=== PATIENT | female | born 1975 | race Caucasian/White ===

== ENCOUNTER 2016-11-24 16:55 | Emergency (ER) | payer MEDICAID ==
[~2016-11-24] VITALS: Ht 160 cm; Wt 80.1 kg
[~2016-11-24 16:55] MED LIST: ALBU2.5V3 NEB; ALBU8.5H3 INH; ALBU8.5H5 INH; BECL8.7A INH; CARI350T PO; CYCL-319 PO; GUAI118L94 PO; HYDR-906 PO; IBUP-1542 PO; IBUP800T25 PO; IPRA3AMP IH; NITR-58 PO; PHEN-538 PO; PRED50TA PO
[2016-11-24 17:01] VITALS: Ht 160 cm; Wt 80.1 kg
[2016-11-24] MEDS ORDERED: MED4DP PO (17:59)
[2016-11-24] MEDS ORDERED: CEPH-443 PO (17:59)
--- NOTE | 2016-11-24 18:11 | ERD ---
ER Documentation Chief Complaint Date/Time DATE: 11/24/16 TIME: 18:03 Chief Complaint RASH LIKE AND SWELLING AROUND LEFT EYE X 2 DAYS HPI This patient is a 41-year-old female with no significant medical history presenting to the emergency department for left eye swelling and redness with a large pimple just lateral to the left eye. She also reports lymphadenopathy of the left anterior neck and to the left preauricular area. The patient also reports chills. She states her face feels hot. She denies any nausea, vomiting , diarrhea, urinary symptoms, or other symptoms at this time. ROS All systems reviewed and are negative except as per history of present illness. Medications Home Meds Active Scripts Methylprednisolone* (Medrol* DOSE PACK) 4 Mg/Dose-Pack Tab.ds.pk, 4 MG PO . DIRECTED, #1 PACKET Prov:RENNY CASTRO PA-C 11/24/16 Cephalexin* (Keflex*) 500 Mg Capsule, 500 MG PO TID for 7 Days, #21 CAP Prov:RENNY CASTRO PA-C 11/24/16 Nitrofurantoin Monohyd Macrocr* (Macrobid*) 100 Mg Capsr, 100 MG PO BID for 7 Days, CAP Prov:DANDRE REDDY NP 06/10/16 Phenazopyridine Hcl* (Pyridium*) 200 Mg Tab, 200 MG PO TID Y for URINARY PAIN, # 6 TAB Prov:DANDRE REDDY NP 06/10/16 Cyclobenzaprine Hcl* (Cyclobenzaprine Hcl*) 10 Mg Tablet, 10 MG PO TID, #15 TAB Prov:DANDRE REDDY NP 06/10/16 Ibuprofen* (Motrin*) 600 Mg Tab, 600 MG PO Q6H Y for PAIN AND OR ELEVATED TEMP, #30 TAB Prov:DANDRE REDDY NP 06/10/16 Hydrocodone/Acetaminophen (Marshall 5-325 Tablet) 1 Each Tablet, 1 TAB PO Q6H Y for PAIN, #20 TAB Prov:DANDRE REDDY NP 06/10/16 Carisoprodol* (Soma*) 350 Mg Tablet, 350 MG PO TID Y for MUSCLE SPASMS, #15 TAB Prov:DANDRE REDDY NP 01/14/16 Cyclobenzaprine Hcl* (Cyclobenzaprine Hcl*) 10 Mg Tablet, 10 MG PO TID, #15 TAB Prov:DANDRE REDDY NP 01/14/16 Ibuprofen* (Motrin*) 800 Mg Tab, 800 MG PO Q8 Y for PAIN AND OR ELEVATED TEMP, # 30 TAB Prov:ISABELL FERREIRA LEAD HANDLER 01/08/16 Beclomethasone Dip* (Qvar 40*) 7.3 Gm Inha, 2 PUFF INH BID, #1 INH Prov:DANDRE REDDY NP 08/21/15 Prednisone* (Prednisone*) 50 Mg Tablet, 50 MG PO DAILY for 5 Days, TAB Prov:DANDRE REDDY NP 08/21/15 Guaifenesin-Codeine Phosphate* (Guaifenesin* with Codeine Liq) 120 Ml Liquid, 5 ML PO Q4H for COUGH, #120 ML Prov:DANDRE REDDY NP 08/21/15 Ipratropium-Albuterol (Ipratropium-Albuterol) 0.5-3 Mg/3 Ml Ampul.neb, 3 ML IH Q6 Y for SHORTNESS OF BREATH, #30 EA Prov:DANDRE REDDY NP 08/21/15 Albuterol Sulfate* (Albuterol Sulfate* HFA) 8.5 Gm Hfa.aer.ad, 2 PUFF INH Q4 Y for SHORTNESS OF BREATH, #1 EA Prov:DANDRE REDDY NP 08/21/15 Reported Medications Beclomethasone Dip* (Qvar 40*) Unknown Strength Inha, INH BID, INH 08/20/15 Albuterol Sulfate* (Albuterol Sulfate* Neb) 0.083%-3 Ml Neb, 2.5 MG NEB Q4 Y for WHEEZING AND SOB, EA 07/03/14 Albuterol Sulfate* (Proair HFA*) 8.5 Gm Hfa.aer.ad, 2 PUFF INH Q4 Y for WHEEZING AND SOB, INH 07/03/14 Allergies Allergies: Coded Allergies: Shellfish (Verified Allergy, Severe, RASHES, SWELLING OF FACE, 01/14/16) No Known Drug Allergies (Verified Allergy, Unknown, 01/14/16) PMhx/Soc History of Surgery: Yes (c/section) Anesthesia Reaction: No Hx Neurological Disorder: No Hx Respiratory Disorders: Yes (asthma) Hx Cardiac Disorders: No Hx Psychiatric Problems: No Hx Miscellaneous Medical Probl: No Hx Alcohol Use: No Hx Substance Use: No Hx Tobacco Use: No FmHx Noncontributory for chief complaint Physical Exam Vitals Vital Signs Date Time Temp Pulse Resp B/P Pulse Ox O2 Delivery O2 Flow Rate FiO2 11/24/16 17:01 98.7 89 14 119/70 100 Physical Exam INITIAL VITAL SIGNS: Reviewed by me. GENERAL: Alert and interactive. No acute distress. HEAD: Head is normocephalic and atraumatic. EYES: EOMI. No scleral icterus. No conjunctival injection. ENT: Moist mucosa. There is preauricular lymphadenopathy noted on the left side. NECK: Supple. Full range of motion. There is mild anterior lymphadenopathy noted on the left side. RESPIRATORY: Normal respiratory effort. Clear breath sounds bilaterally. No wheezing, rales, or rhonchi. CV: Regular rate and rhythm. Normal S1 S2. No S3 or S4. No murmurs. ABDOMEN: Soft, non-distended, non-tender. No guarding. No rebound. No masses. EXTREMITIES: No deformity. SKIN: There is warmth and redness and tenderness to palpation just lateral to the left eye. There is a small abscess noted here. There is no fluctuance noted. There is no purulent discharge present. NEUROLOGIC: Alert and oriented x 4. Speech is normal. Moves all extremities equally. No motor or sensory deficits noted. Procedures/MDM 41-year-old female presents secondary to complaints of red hard area just lateral to the left eye ongoing for the past 2 days. On physical examination the patient's vitals are within normal limits. There is a small abscess noted just lateral to the left eye. Extraocular movements are intact. There are no visual acuity deficits. I believe this is a early cellulitis and the patient is stable for outpatient management with a prescription for Keflex and Medrol Dosepak. The patient agrees with the plan and diagnosis and her questions and concerns of been addressed. The patient was advised to follow-up within 24 hours to make sure that the infection is resolving. She was advised that she may need incision and drainage of this area but it is currently indurated and not ready for incision. I doubt disseminated cellulitis, septicemia, or other emergent conditions at this time. The patient was hemodynamically stable prior to discharge. Departure Diagnosis: Primary Impression: Cellulitis Site of cellulitis: face Qualified Code: L03.211 - Cellulitis of face Condition: Fair Patient Instructions: Cellulitis, Facial [facility] Usted se wallace hecho un examen mdico de control que le indica que no est en gladis condicin que requiera tratamiento urgente en el Departamento de Emergencia. Un estudio ms profundo y el tratamiento de blount condicin pueden esperar sin ningn riesgo hasta que usted sea atendida/o en el consultorio de blount mdico o gladis cl edith. Es responsabilidad suya arreglar gladis cha para el seguimiento del jonathan. MANEJO DE CONDICIONES NO URGENTES EN EL FUTURO 1) Si usted tiene un mdico de atencin primaria: Usted debera llamar a blount mdico de atencin primaria antes de venir al departamento de emergencia. Despus de las horas de consultorio, blount doctor o blount asociado/a est disponible por telfono. El mdico o enfermero de kortney en el servicio telefnico puede asesorarle por olga medio para atender el problema, o jonathan contrario se puede programar gladis cha. 2) Si usted no tiene un mdico de atencin primaria: Llame al mdico o clnica de referencia que aparece abajo john las horas de consultorio para hacer gladis cha para que le vean. CLINICAS: [facility] [phone] [facility] [phone] [facility] [phone] [place] [phone] [facility] [phone] [facility] [phone] [address] Additional Instructions: No mas mejor en 2-3 sewell, regresar. Mas peor en 24 horas, regresear rapidamente. Ir a doctor primario in 5-7 sewell. Usar instrucciones cuando sejal medicamento. RENNY CASTRO PA-C Nov 24, 2016 18:10
== END 2016-11-24 18:07 | disposition home or self-care (01) ==
LOC: FTE 16:55
DX: L03.211 Cellulitis of face (principal); J45.909 Unspecified asthma, uncomplicated
CPT/HCPCS: 99284

== ENCOUNTER 2017-11-20 10:20 | Emergency (ER) | END 2017-11-20 11:15 | disposition home or self-care (01) ==